=== PATIENT | female | born 1950 | race Caucasian/White ===

== ENCOUNTER 2016-10-10 16:36 | Observation (INO) | payer MEDICARE, SELFPAY ==
[~2016-10-10] VITALS: Ht 167.6 cm; Wt 84.0 kg
[2016-10-10 17:57] LABS: BASO % 0.2 % (0.1-1.2); EOS # 0.3 10_X3_uL (0.0-0.4); EOS % 3.9 % (0.7-5.8); GRAN % 62.4 % (34.0-71.1); HEMATOCRIT 41.3 % (34-45); HEMOGLOBIN 13.1 g/dL (11.2-15.7); LYMPH # 1.7 10_X3_uL (1.2-3.7); LYMPH % 27.1 % (19.3-51.7); MEAN CORPUSCULAR HEMOGLOBIN 25.5 pg (27.0-33.0); MEAN CORPUSCULAR HGB CONC 31.7 g/dL (32.0-36.0); MEAN CORPUSCULAR VOLUME 80.4 fL (79-95); MEAN PLATELET VOLUME 9.9 fl (7.5-11.5); MONO # 0.4 10_X3_uL (0.2-0.9); MONO % 6.4 % (4.7-12.5); PLATELET COUNT 203 x10_3/uL (182-369); RED BLOOD COUNT 5.14 x10_6/uL (3.9-5.2); RED CELL DISTRIBUTION WIDTH 14.4 % (11.7-14.4); WHITE BLOOD COUNT 6.4 x10_3/uL (4.0-10.0)
[2016-10-10 18:12] LABS: ALBUMIN 4.3 gm/dL (3.4-5.0); ALKALINE PHOSPHATASE 90 U/L (50-136); ALT/SGPT 13 U/L (3.5-33.9); AST/SGOT 19 U/L (7.04-26.96); BILIRUBIN,TOTAL 0.23 mg/dL (0.0-1.0); BLOOD UREA NITROGEN 14 mg/dL (7-18); CALCIUM 9.1 mg/dL (8.7-10.7); CARBON DIOXIDE 24 mmol/L (21-32); CREATINE KINASE 89 U/L (21-215); CREATININE 0.5 mg/dL (0.6-1.3); GLUCOSE,RANDOM 109 mg/dL (70-99); POTASSIUM 4.3 mmol/L (3.5-5.1); SODIUM 139 mmol/L (136-145); TOTAL PROTEIN 7.4 gm/dL (6.4-8.2)
[2016-10-10 21:19] LABS: INR 1.1 (1.0-1.1); PARTIAL THROMBOPLASTIN TIME 27.6 SECONDS (21.8-28.4); PROTHROMBIN TIME (PATIENT) 10.6 SECONDS (9.6-10.8)
[2016-10-11 00:09] LABS: CKMB 1.7 ng/ml (0.0-5.0)
[2016-10-11 00:11] LABS: TROP-I < 0.30 NG/ML (0.00-0.30)
[2016-10-11 06:22] LABS: BASO % 0.2 % (0.1-1.2); EOS # 0.4 10_X3_uL (0.0-0.4); GRAN # 3.2 10_X3_uL (1.6-6.1); GRAN % 53.2 % (34.0-71.1); HEMATOCRIT 41.5 % (34-45); LYMPH % 33.8 % (19.3-51.7); MEAN CORPUSCULAR HEMOGLOBIN 25.5 pg (27.0-33.0); MEAN CORPUSCULAR HGB CONC 31.3 g/dL (32.0-36.0); MEAN CORPUSCULAR VOLUME 81.4 fL (79-95); MEAN PLATELET VOLUME 10.2 fl (7.5-11.5); MONO # 0.4 10_X3_uL (0.2-0.9); MONO % 6.8 % (4.7-12.5); PLATELET COUNT 187 x10_3/uL (182-369); RED CELL DISTRIBUTION WIDTH 14.4 % (11.7-14.4)
[2016-10-11 06:36] LABS: CKMB 1.6 ng/ml (0.0-5.0)
[2016-10-11 06:41] LABS: TROP-I < 0.30 NG/ML (0.00-0.30)
== END 2016-10-11 09:25 | disposition home or self-care (01) ==
LOC: ER 16:36 → MS 20:10 → UNDODEPER 10-12 20:30
PROVIDERS: Emergency Medicine; ADMIT Family Medicine
DX: R07.89 Other chest pain (principal); I10 Essential (primary) hypertension; J44.9 Chronic obstructive pulmonary disease, unspecified; Z95.0 Presence of cardiac pacemaker; Z90.49 Acquired absence of other specified parts of digestive tract; Z90.710 Acquired absence of both cervix and uterus; Z79.899 Other long term (current) drug therapy; Z79.891 Long term (current) use of opiate analgesic
CPT/HCPCS: 36415; 71010; 80053; 80061; 82550; 82553; 83036; 85025; 85610; 85730; 93005; 93041; 99070; 99284; 99285-25; G0378